=== PATIENT | female | born 1955 | race Caucasian/White ===

== ENCOUNTER 2025-04-11 12:30 | Outpatient (RCR) | payer MEDICARE, SELFPAY ==
--- NOTE | 2025-01-19 11:16 | OPREHPOC ---
Outpatient Therapy Plan of Care This is a Multidisciplinary Plan of Care that may contain components documented by all disciplines (PT, OT, and ST.) PT Problem 1 PT Problem #1 Knowledge Deficit PT Goal 1 Goal / Goal Update 1. Patient will perform independent HEP 2. Patient will verbalize urge suppression strategies Target Visit 3 PT Problem 2 PT Problem #2 Impaired Strength PT Goal 1 Goal / Goal Update 1. Improve pelvic floor strength to 4/5 to reduce incontinence 2. Improve pelvic floor endurance to 10 seconds to reduce incontinence Target Visit 5 PT Goal 1 Goal / Goal Update 1. Patient will report urinary incontinence no more than 1 time in a 2 week period 2. Patient will report a sense of pelvic pressure or heaviness no more than 1 day per week 3. No limitations in activity from symptoms per patient Target Visit 5
--- NOTE | 2025-01-19 11:16 | PTOPEVAL1 ---
Assessment and note entered by Bridget Keller DPT Evaluation Information Assessment Status Evaluation Diagnosis n81.89 ICD-10 Condition Codes (PT) Weakness R53.1,Stress incontinence N39.3 Subjective Information Pt reports she is feeling something falling or heaviness in her pelvis. Her symptoms will worsen at the end of the day especially if walking a lot. Discomfort with walking at times. Voids 6 times a day and 1 time at night. Can hold urge to void 10 -15 minutes or longer depending on the situation. Urinary incontinence 3 times a week. Volume will vary, more if it's later in the day. Wears pads all the time due to fear of leaking. One pad a day . Denies pain with urination. BM daily. Denies pain or fecal incontinence. Denies history of pelvic pain. Pt has been 2 times, 2 vaginal deliveries. No other [employer] history. No other b/b history. Patient goal: get rid of pelvic heaviness Returns to [facility] in June. Reported Pain Level Pain Score 0: Self Report Assessment PT Clinical Summary The patient is presenting to skilled therapy with urinary incontinence and symptoms of pelvic organ prolapse. She demonstrates decreased pelvic floor strength and endurance, as well as decreased hip and abdominal strength, which are contributing to her incontinence multiple times a week and sense of pelvic heaviness with activity. She will highly benefit from therapy to address strength and endurance in order to reduce incontinence and heaviness and to return to full function. Plan of Care Interventions Manual Therapy,Neuro Re-education,Patient/ Caregiver Education,Therapeutic Activities, Therapeutic Exercise PT Services Indicated Yes Treatment Frequency and 1 time a week for 5 visits Duration These treatments will address the objective and functional deficits as defined above. The patient will be advanced safely and appropriately in order for the patient to progress towards his/her prior level of function. Additional exercises will be introduced and as well as a comprehensive home exercise program upon discharge, if needed, ?to ensure carryover of functional gains achieved in the clinic. This treatment plan has been reviewed and agreement upon by the patient.
--- NOTE | 2025-02-22 10:26 | OPREHPOC ---
Outpatient Therapy Plan of Care This is a Multidisciplinary Plan of Care that may contain components documented by all disciplines (PT, OT, and ST.) PT Problem 1 PT Problem #1 Knowledge Deficit PT Goal 1 Goal / Goal Update 1. Patient will perform independent HEP 2. Patient will verbalize urge suppression strategies update 02/22/25 1. met 2. not met Target Visit 3 Progress Partially Met PT Problem 2 PT Problem #2 Impaired Strength PT Goal 1 Goal / Goal Update 1. Improve pelvic floor strength to 4/5 to reduce incontinence 2. Improve pelvic floor endurance to 10 seconds to reduce incontinence update 02/22/25 1. improved to 3/5 2. Improved to 6 Target Visit 8 Progress Partially Met PT Goal 1 Goal / Goal Update 1. Patient will report urinary incontinence no more than 1 time in a 2 week period 2. Patient will report a sense of pelvic pressure or heaviness no more than 1 day per week 3. No limitations in activity from symptoms per patient update 02/22/25 1. improved to 2 times per week 2. improved but still daily 3. met Target Visit 5 Progress Partially Met
--- NOTE | 2025-02-22 10:27 | PTOPPROG ---
Assessment and note entered by Bridget Keller DPT Evaluation Information Assessment Status Progress Diagnosis n81.89 ICD-10 Condition Codes (PT) Weakness R53.1,Stress incontinence N39.3 Subjective Information Feels some improvements with therapy, is noticing less symptoms of her prolapse and does not notice it as often. Incontinence 2 times in the last week . Generally feels that the volume has decreased as well. Can hold urge to void 15 minutes. Wearing 1 pad every day. Assessment PT Clinical Summary The patient has made good progress so far in therapy. She reports decreased frequency of incontinence and decreased symptoms of pelvic organ prolapse. She also demonstrates improved pelvic floor strength and endurance, as well as improved abdominal strength. Due to her progress but continued incontinence she will benefit from further therapy to eliminate incontinence and return to full function. PFIQ improved from 19% to 14.33% Plan of Care Interventions Manual Therapy,Neuro Re-education,Patient/ Caregiver Education,Therapeutic Activities, Therapeutic Exercise PT Services Indicated Yes Treatment Frequency and 1 time every other week for 3-4 visits Duration These treatments will address the objective and functional deficits as defined above. The patient will be advanced safely and appropriately in order for the patient to progress towards his/her prior level of function. Additional exercises will be introduced and as well as a comprehensive home exercise program upon discharge, if needed, ?to ensure carryover of functional gains achieved in the clinic. This treatment plan has been reviewed and agreement upon by the patient.
--- NOTE | 2025-07-18 13:08 | PTOPDC ---
Assessment and note entered by Bridget Keller DPT Evaluation Information Assessment Status Discharge - Pt Not Present Diagnosis n81.89 ICD-10 Condition Codes (PT) Weakness R53.1,Stress incontinence N39.3 Subjective Information - Assessment PT Clinical Summary Patient has not called with a need to come back to therapy. Her case has been discharged. Plan of Care PT Services Indicated No
== END 2025-04-19 23:59 | disposition home or self-care (01) ==
LOC: ANHPT 12:30
PROVIDERS: PCP Family Medicine; Visit Provider Family Medicine
DX: N81.89 Other female genital prolapse (principal)
CPT/HCPCS: 97112; 97161; 97530